=== PATIENT | female | born 1975 | race Caucasian/White ===

== ENCOUNTER → 2023-10-26 | Outpatient (CLI) | payer OTHER ==
[2023-10-26 14:41] LABS: HEMATOCRIT 39.5 % (37.0-47.0); MEAN CELL VOLUME 89.6 fl (81.0-99.0); MEAN CORPUSCULAR HGB 30.2 pg (27.0-31.0); MEAN CORPUSCULAR HGB CONC 33.7 g/dl (33.0-37.0); MEAN PLATELET VOLUME 10.6 fl (9.6-12.3); RED BLOOD COUNT 4.41 10*6/uL (4.10-5.10); RED CELL DISTRI WIDTH 13.9 % (0-14.5); WHITE BLOOD COUNT 7.4 10*3/uL (4.8-10.8)
[2023-10-26 15:29] LABS: ALKALINE PHOSPHATASE 50 U/L (46-116); BUN 12 mg/dl (9-23); CHLORIDE 102 mmol/L (98-107); CHOLESTEROL 121 mg/dL (<200); CPK 76 U/L (34-171); LDL CHOLESTEROL 52 mg/dL (9-159); POTASSIUM 4.3 mmol/L (3.4-5.1); SGPT/ALT 18 U/L (5-49); TOTAL PROTEIN 7.5 gm/dL (6.0-8.0); TRIGLYCERIDES 108 mg/dl (<150)
== END | disposition home or self-care (01) ==
LOC: LAB 14:29
PROVIDERS: ATTEND Family Medicine
DX: I10 Essential (primary) hypertension (principal); E11.9 Type 2 diabetes mellitus without complications; E78.00 Pure hypercholesterolemia, unspecified

== ENCOUNTER → 2024-06-27 | Outpatient (CLI) | payer OTHER ==
[2024-06-27 15:06] LABS: HEMATOCRIT 41.5 % (37.0-47.0); MEAN CELL VOLUME 89.6 fl (81.0-99.0); MEAN CORPUSCULAR HGB 29.2 pg (27.0-31.0); MEAN CORPUSCULAR HGB CONC 32.5 g/dl (33.0-37.0); MEAN PLATELET VOLUME 10.9 fl (9.6-12.3); RED BLOOD COUNT 4.63 10*6/uL (4.10-5.10); RED CELL DISTRI WIDTH 13.1 % (0-14.5)
[2024-06-27 15:38] LABS: ALKALINE PHOSPHATASE 53 U/L (46-116); BUN 13 mg/dl (9-23); CHLORIDE 105 mmol/L (98-107); CHOLESTEROL 112 mg/dL (<200); CPK 116 U/L (34-171); LDL CHOLESTEROL 50 mg/dL (9-159); POTASSIUM 4.1 mmol/L (3.4-5.1); SGPT/ALT 15 U/L (5-49); TOTAL PROTEIN 7.2 gm/dL (6.0-8.0); TRIGLYCERIDES 104 mg/dl (<150)
== END | disposition home or self-care (01) ==
LOC: LAB 14:41
PROVIDERS: ATTEND Family Medicine
DX: I10 Essential (primary) hypertension (principal); E11.9 Type 2 diabetes mellitus without complications; E78.00 Pure hypercholesterolemia, unspecified

== ENCOUNTER → 2024-11-21 | Outpatient (CLI) | payer OTHER ==
[2024-11-21 14:47] LABS: HEMATOCRIT 40.4 % (37.0-47.0); MEAN CELL VOLUME 87.8 fl (81.0-99.0); MEAN CORPUSCULAR HGB 28.9 pg (27.0-31.0); MEAN CORPUSCULAR HGB CONC 32.9 g/dl (33.0-37.0); RED BLOOD COUNT 4.6 10*6/uL (4.10-5.10); RED CELL DISTRI WIDTH 12.9 % (0-14.5); WHITE BLOOD COUNT 4.7 10*3/uL (4.8-10.8)
[2024-11-21 15:21] LABS: ALKALINE PHOSPHATASE 66 U/L (46-116); BUN 7 mg/dl (9-23); CHLORIDE 103 mmol/L (98-107); CHOLESTEROL 119 mg/dL (<200); CPK 104 U/L (34-171); LDL CHOLESTEROL 62 mg/dL (9-159); POTASSIUM 3.5 mmol/L (3.4-5.1); SGPT/ALT 12 U/L (5-49); TOTAL PROTEIN 7.6 gm/dL (6.0-8.0); TRIGLYCERIDES 127 mg/dl (<150)
[2024-11-21 15:35] LABS: VITAMIN D, 25-HYDROXY 37.2 ng/mL (30-100)
== END | disposition home or self-care (01) ==
LOC: LAB 14:33
PROVIDERS: ATTEND Family Medicine
DX: E11.9 Type 2 diabetes mellitus without complications (principal); I10 Essential (primary) hypertension; E78.00 Pure hypercholesterolemia, unspecified; E55.9 Vitamin D deficiency, unspecified; R53.83 Other fatigue

== ENCOUNTER 2024-11-27 12:59 | Inpatient (IN) | payer OTHER ==
[~2024-11-27] VITALS: Ht 177.8 cm; Wt 96.4 kg
[2024-11-27 13:53] VITALS: BP 148/62
[2024-11-27] MEDS ORDERED: SODIUM CHLORIDE 0.9% 1,000 ML IV ONE (15:45)
[2024-11-27] MEDS ORDERED: Ondansetron Hydrochloride 4 MG/2 ML VIAL IV ONE (15:45)
[2024-11-27] MEDS ORDERED: Ketorolac Tromethamine 30 MG/ML VIAL IV ONE (15:45)
[2024-11-27 16:00] VITALS: BP 130/60
[2024-11-27 16:11] LABS: BILIRUBIN Negative (Negative); BLOOD Negative (Negative); CLARITY Clear (Clear); COLOR Yellow (Yellow); GLUCOSE 3+ (Negative); KETONE 4+ (Negative); LEUKO ESTERASE Negative (Negative); NITRITE Negative (Negative); SPECIFIC GRAVITY >= 1.030 (1.001-1.030)
[2024-11-27 16:13] LABS: BASO # 0.1 10*3/uL (0.0-0.1); BASO % 0.3 % (0.0-1.0); HEMATOCRIT 47.2 % (37.0-47.0); MEAN CORPUSCULAR HGB 28.8 pg (27.0-31.0); MEAN CORPUSCULAR HGB CONC 31.4 g/dl (33.0-37.0); MEAN PLATELET VOLUME 10.7 fl (9.6-12.3); MONO # 0.6 10*3/uL (0.1-1.0); MONO % 3.9 % (3.0-9.0); NEUT # 13.7 10*3/uL (2.3-7.9); NEUT % 89.6 % (47.0-73.0); PLATELET COUNT AUTOMATED 258 10*3/uL (130-400); RED BLOOD COUNT 5.13 10*6/uL (4.10-5.10); RED CELL DISTRI WIDTH 13.1 % (0-14.5); WHITE BLOOD COUNT 15.3 10*3/uL (4.8-10.8)
[2024-11-27 16:15] LABS: VENOUS BLOOD GAS O2 SAT 82.1 % (60.0-85.0)
[2024-11-27 16:23] LABS: BACTERIA 1+; RBC 0-2 rbc/hpf (0-2)
[2024-11-27 16:32] LABS: ALKALINE PHOSPHATASE 76 U/L (46-116); BUN 22 mg/dl (9-23); CHLORIDE 99 mmol/L (98-107); LIPASE 59 U/L (12-53); POTASSIUM 3.8 mmol/L (3.4-5.1); TOTAL PROTEIN 9.6 gm/dL (6.0-8.0)
[2024-11-27 16:37] LABS: SGPT/ALT < 7 U/L (5-49)
[2024-11-27] MEDS ORDERED: INSULIN REGULAR, HUMAN 1 UNIT/0.01 ML IV ONE (16:55)
[2024-11-27] MEDS ORDERED: DEXTROSE 50% 25 GM/50 ML VIAL IV PRN (17:10)
[2024-11-27] MEDS ORDERED: INSULIN REGULAR IN 0.9 % NACL 100 ML IV SCH (17:10)
[2024-11-27] MEDS ORDERED: POTASSIUM CHLORIDE 20 MEQ TAB PO PRN (17:10)
[2024-11-27] MEDS ORDERED: POTASSIUM CHLORIDE 20 MEQ/100 ML BAG IV PRN (17:10)
[2024-11-27] MEDS ORDERED: DEXTROSE 5% SALINE 0.45% 1,000 ML IV SCH (17:15)
[2024-11-27] MEDS ORDERED: ATORVASTATIN CA20 M1 PO (17:47)
[2024-11-27] MEDS ORDERED: AMLODIPINE BESYL5 MG PO (17:48)
[2024-11-27] MEDS ORDERED: LISINOPRIL10 M1 PO (17:48)
[2024-11-27] MEDS ORDERED: JARDIANCE25 MG PO (17:48)
[2024-11-27] MEDS ORDERED: Ondansetron Hydrochloride 4 MG/2 ML VIAL IV PRN (19:25)
[2024-11-27 20:03] VITALS: BP 138/68
[2024-11-27 20:15] VITALS: BP 141/85
[2024-11-27 20:58] LABS: CHLORIDE 101 mmol/L (98-107); POTASSIUM 3.8 mmol/L (3.4-5.1)
[2024-11-27 20:59] LABS: BUN 34 mg/dl (9-23)
[2024-11-27] MEDS ORDERED: Ceftriaxone Sodium 1 GM in SYRINGE INFUSION 10 ML IV SCH (22:00)
[2024-11-27] MEDS ORDERED: Dexamethasone Sodium Phospha 4 MG/ML VIAL IV SCH (22:20)
[2024-11-28] VITALS: BP 137/82
[2024-11-28 00:45] LABS: BUN 35 mg/dl (9-23); CHLORIDE 103 mmol/L (98-107); POTASSIUM 3.9 mmol/L (3.4-5.1)
[2024-11-28 04:00] VITALS: BP 151/76
[2024-11-28 04:10] LABS: HEMATOCRIT 38.8 % (37.0-47.0); MEAN CORPUSCULAR HGB 28.3 pg (27.0-31.0); MEAN CORPUSCULAR HGB CONC 32.7 g/dl (33.0-37.0); MEAN PLATELET VOLUME 10.4 fl (9.6-12.3); PLATELET COUNT AUTOMATED 219 10*3/uL (130-400); RED BLOOD COUNT 4.48 10*6/uL (4.10-5.10); RED CELL DISTRI WIDTH 13.1 % (0-14.5); WHITE BLOOD COUNT 13.5 10*3/uL (4.8-10.8)
[2024-11-28 04:23] LABS: MANUAL DIFF REFLEX YES
[2024-11-28 04:25] LABS: MEAN CELL VOLUME 86.6 fl (81.0-99.0)
[2024-11-28 04:32] LABS: PLATELET SUFFICIENCY NORMAL (NORMAL); TOTAL CELLS COUNTED 100 #CELLS
[2024-11-28 04:41] LABS: BUN 35 mg/dl (9-23); CHLORIDE 105 mmol/L (98-107); POTASSIUM 4.1 mmol/L (3.4-5.1)
[2024-11-28] MEDS ORDERED: Pantoprazole Sodium 40 MG VIAL IV SCH (06:00)
[2024-11-28 08:00] VITALS: BP 143/68
[2024-11-28] MEDS ORDERED: ACETAMINOPHEN 325 MG TAB PO PRN (08:25)
[2024-11-28 09:25] LABS: BUN 33 mg/dl (9-23); CHLORIDE 105 mmol/L (98-107); POTASSIUM 4.2 mmol/L (3.4-5.1)
[2024-11-28] MEDS ORDERED: LISINOPRIL 10 MG TAB PO SCH (10:00)
[2024-11-28] MEDS ORDERED: amLODIPine besylate 5 MG TAB PO SCH (10:00)
[2024-11-28] MEDS ORDERED: EMPAGLIFLOZIN 25 MG TABLET PO SCH (10:00)
[2024-11-28 12:00] VITALS: BP 135/77
[2024-11-28 12:23] LABS: BUN 26 mg/dl (9-23); CHLORIDE 105 mmol/L (98-107)
[2024-11-28] MEDS ORDERED: DEXTROSE 10 % IN WATER 250 ML IV PRN (14:50)
[2024-11-28] MEDS ORDERED: Insulin Glargine, Recombinan 1 UNIT/0.01 ML SC ONE (15:00)
[2024-11-28 16:00] VITALS: BP 132/87
[2024-11-28] MEDS ORDERED: BARICITINIB 2 MG TABLET PO SCH (16:00)
[2024-11-28] MEDS ORDERED: REMDESIVIR 200 MG in SODIUM CHLORIDE 0.9% 210 ML IV ONE (16:00)
[2024-11-28] MEDS ORDERED: INSULIN LISPRO 1 UNIT/0.01 ML SQ SCH ×2 (16:30→20:00)
[2024-11-28 20:00] VITALS: BP 117/64
[2024-11-29] VITALS: BP 139/77
[2024-11-29 04:00] VITALS: BP 129/78
[2024-11-29 06:04] LABS: BASO % 0.1 % (0.0-1.0); HEMATOCRIT 39.1 % (37.0-47.0); MEAN CELL VOLUME 88.9 fl (81.0-99.0); MEAN CORPUSCULAR HGB 28.6 pg (27.0-31.0); MEAN CORPUSCULAR HGB CONC 32.2 g/dl (33.0-37.0); MEAN PLATELET VOLUME 10.5 fl (9.6-12.3); MONO # 0.3 10*3/uL (0.1-1.0); MONO % 3.4 % (3.0-9.0); NEUT # 8.6 10*3/uL (2.3-7.9); NEUT % 86.8 % (47.0-73.0); PLATELET COUNT AUTOMATED 239 10*3/uL (130-400); RED CELL DISTRI WIDTH 13.1 % (0-14.5); WHITE BLOOD COUNT 9.9 10*3/uL (4.8-10.8)
[2024-11-29 06:29] LABS: BUN 28 mg/dl (9-23); CHLORIDE 104 mmol/L (98-107); POTASSIUM 4.1 mmol/L (3.4-5.1)
[2024-11-29 08:00] VITALS: BP 173/67
[2024-11-29] MEDS ORDERED: Insulin Glargine, Recombinan 1 UNIT/0.01 ML SC SCH (10:00)
[2024-11-29 12:00] VITALS: BP 178/79
[2024-11-29 16:00] VITALS: BP 141/76
[2024-11-29] MEDS ORDERED: REMDESIVIR 100 MG in SODIUM CHLORIDE 0.9% 230 ML IV SCH (16:00)
[2024-11-29 20:00] VITALS: BP 157/80
[2024-11-30] VITALS: BP 155/79
[2024-11-30 06:58] LABS: BASO % 0.4 % (0.0-1.0); EOS % 0.3 % (1.0-4.0); HEMATOCRIT 40.1 % (37.0-47.0); MEAN CELL VOLUME 89.7 fl (81.0-99.0); MEAN CORPUSCULAR HGB 28.2 pg (27.0-31.0); MEAN CORPUSCULAR HGB CONC 31.4 g/dl (33.0-37.0); MEAN PLATELET VOLUME 10.6 fl (9.6-12.3); MONO # 0.9 10*3/uL (0.1-1.0); MONO % 9.4 % (3.0-9.0); NEUT # 6.5 10*3/uL (2.3-7.9); NEUT % 67.2 % (47.0-73.0); PLATELET COUNT AUTOMATED 228 10*3/uL (130-400); RED BLOOD COUNT 4.47 10*6/uL (4.10-5.10); RED CELL DISTRI WIDTH 13.1 % (0-14.5); WHITE BLOOD COUNT 9.6 10*3/uL (4.8-10.8)
[2024-11-30 07:23] LABS: BUN 21 mg/dl (9-23); CHLORIDE 103 mmol/L (98-107); POTASSIUM 4.5 mmol/L (3.4-5.1)
[2024-11-30 08:00] VITALS: BP 143/67
[2024-11-30] MEDS ORDERED: TRULICITY3 MG/0.5 M SQ (08:35)
[2024-11-30 12:00] VITALS: BP 120/70
[2024-11-30 16:00] VITALS: BP 120/51
[2024-11-30] MEDS ORDERED: LANTUS100 UNIT/1 SC (18:07)
== END 2024-11-30 19:38 | disposition home or self-care (01) | DRG 137 ==
LOC: ED 12:59 → EDHOLD 17:08 → ICCU 17:08 → 4E 11-29 15:16
PROVIDERS: Physician Assistant Medical; ADMIT Internal Medicine; ATTEND Internal Medicine
PROC: XW033E5 Introduction of Remdesivir Anti-infective into Peripheral Vein, Percutaneous Approach, New Technology Group 5 (ICD-10-PCS; principal; 2024-11-30)
DX: U07.1 COVID-19 (principal); E11.10 Type 2 diabetes mellitus with ketoacidosis without coma; J12.82 Pneumonia due to coronavirus disease 2019; E78.2 Mixed hyperlipidemia; I10 Essential (primary) hypertension; E66.9 Obesity, unspecified; Z79.899 Other long term (current) drug therapy; Z79.01 Long term (current) use of anticoagulants; Z79.2 Long term (current) use of antibiotics; Z83.3 Family history of diabetes mellitus; Z80.8 Family history of malignant neoplasm of other organs or systems; Z68.30 Body mass index [BMI] 30.0-30.9, adult

== ENCOUNTER → 2024-12-19 | Outpatient (CLI) | payer OTHER ==
[~2024-12-19] MED LIST: AMLODIPINE BESYL5 MG PO; ATORVASTATIN CA20 M1 PO; JARDIANCE25 MG PO; LANTUS100 UNIT/1 SC; LISINOPRIL10 M1 PO; METOCLOPRAMIDE H5 M1 PO; TRULICITY3 MG/0.5 M SQ
[2024-12-19 13:38] LABS: HEMATOCRIT 35.7 % (37.0-47.0); MEAN CELL VOLUME 90.8 fl (81.0-99.0); MEAN CORPUSCULAR HGB 28.8 pg (27.0-31.0); MEAN CORPUSCULAR HGB CONC 31.7 g/dl (33.0-37.0); MEAN PLATELET VOLUME 9.9 fl (9.6-12.3); RED BLOOD COUNT 3.93 10*6/uL (4.10-5.10); RED CELL DISTRI WIDTH 15.1 % (0-14.5); WHITE BLOOD COUNT 7.4 10*3/uL (4.8-10.8)
[2024-12-19 14:11] LABS: ALKALINE PHOSPHATASE 74 U/L (46-116); BUN 16 mg/dl (9-23); CHLORIDE 103 mmol/L (98-107); SGPT/ALT 12 U/L (5-49); TOTAL PROTEIN 6.9 gm/dL (6.0-8.0)
== END | disposition home or self-care (01) ==
LOC: LAB 13:18
PROVIDERS: ATTEND Family Medicine
DX: E11.9 Type 2 diabetes mellitus without complications (principal); R53.83 Other fatigue; E86.0 Dehydration

== ENCOUNTER → 2025-09-04 | Outpatient (CLI) | payer OTHER ==
[2025-09-04 15:25] LABS: MEAN CELL VOLUME 88.6 fl (81.0-99.0); MEAN CORPUSCULAR HGB 29.1 pg (27.0-31.0); MEAN PLATELET VOLUME 10.9 fl (9.6-12.3); NUCLEATED RED BLOOD CELL 0.0 % (0.0-0.0); NUCLEATED RED BLOOD CELL 0.0 10*3/uL (0.0-0.0); PLATELET COUNT AUTOMATED 189.0 10*3/uL (130-400); RED CELL DISTRI WIDTH 13.2 % (0-14.5)
[2025-09-04 15:56] LABS: BUN 18 mg/dl (9-23); CPK 104 U/L (34-171); LDL CHOLESTEROL 72 mg/dL (9-159); SGPT/ALT 20 U/L (5-49)
== END | disposition home or self-care (01) ==
LOC: LAB 15:05
PROVIDERS: ATTEND Family Medicine
DX: E78.00 Pure hypercholesterolemia, unspecified (principal); I10 Essential (primary) hypertension; E11.9 Type 2 diabetes mellitus without complications